=== PATIENT | male | born 1950 | race Caucasian/White ===

== ENCOUNTER 2025-07-06 18:59 | Inpatient (IN) | payer MEDICARE, SELFPAY ==
[2025-07-06] VITALS (9 sets, daily range): BP systolic 134–181; BP diastolic 77–98; BMI 32.5
--- NOTE | 2025-07-06 15:19 | ED.GENMED ---
History of Present Illness
General
Chief Complaint: Abdominal Symptoms
Source: patient
Exam Limitations: none
Time Seen by Provider: 07/06/25 15:07
Nursing documentation reviewed up to this point in time: agreed with
History of Present Illness
History of Present Illness:
75-year-old male with no reported chronic medical issues presents to the ER for evaluation of abdominal discomfort and shortness of breath. Patient reports symptoms have been ongoing for about a week. He reports that he will have 1-2 daily
episodes over the past week usually lasting for a few hours at a time. No clear triggering factors noted�he says that he has had a few episodes after eating but also has had multiple episodes not related to food. He describes feeling of abdominal
bloating and epigastric discomfort. He reports feeling that he cannot get a full breath then/tightness in his chest. He says that he gets dry mouth. He says he feels mildly lightheaded during these episodes. No nausea or vomiting. He has not
been constipated says he had a normal bowel movement today. He denies any fever or chills. He denies any palpitations. He denies any headache. He denies any swelling or pain in the legs. He denies any other acute complaints. He denies having
had similar symptoms the past. Denies any known cardiac history.
Review of Systems
Review of Systems
All Other Systems: ROS reviewed and negative except as documented in HPI and ROS
Constitutional: Denies fever or chills
EENT: Denies sore throat
Respiratory: Reports trouble breathing; Denies cough
Cardiac: Denies chest pain
ABD/GI: Reports abdominal pain and other (Bloating); Denies nausea, vomiting or diarrhea
Musculoskeletal: Denies edema
Neurological: Reports dizzy; Denies headache
Phy Exam
Physical Exam
Physical Exam:
General: Awake, alert, oriented x3, slightly hard of hearing; no acute distress
Head: Normocephalic, atraumatic
Eyes: Conjunctiva normal, sclera anicteric
Throat: Airway intact, handling secretions
Neck: Trachea midline, supple without meningismus
Lungs: Clear to auscultation bilaterally, no wheezing, rales, rhonchi
Heart: Regular rate and rhythm, no murmurs, gallops, or rubs appreciated
Abd: Soft, very mildly distended with some tympany, minimally tender epigastrium but no rebound tenderness or guarding and no appreciable masses
Neuro: Grossly intact
Skin: Warm and dry
Extremities: No edema in extremities, warm and well-perfused
Scores
Heart Failure Risk
Heart Failure Risk Score: Not Applicable
Heart Score for Chest Pain Patients
STEMI patient?: Not applicable
Withdrawal Assessment of Alcohol
Withdrawal Assessment Completed?: Not applicable
Course
Orders/Labs/Results
Orders:
Orders
07/06/25 15:06
Complete Blood Count/With Diff Urgent
Comprehensive Metabolic Panel Urgent
Lipase Urgent
07/06/25 15:08
Electrocardiogram (*1) Urgent
Reason for Study: Abdominal Pain
EKG- Treatment ONCE
07/06/25 15:19
CT Abd/pelvis W Iv Cont Urgent
Comment:
Reason For Exam: abd pain, bloating
CR Chest - 2 Views Urgent
Comment:
Reason For Exam: sob
07/06/25 15:44
Troponin I Urgent
07/06/25 17:50
Aspirin Chewable [Low Strength Aspirin] 324 mg PO NOW STA
07/06/25 17:57
PTT Urgent
Comment: Obtain baseline before beginning heparin infusion if not already collected
Heparin 4,000 units IV NOW STA
Pharmacy Request to Place See Dose Instructions PO NOW STA
Discontinue all Active Warfarin orders?: Yes
Nursing to Place Non Medication Order As Directed
Physician Order: PTT 6 hours after initial start of Heparin infusion
07/06/25 18:00
Heparin INFUSION titrate rate - CONTINUOUS Heparin 01516 Units/250 ml 25,000 units in 250 ml IV PER PROTOCOL
Weight to be used for heparin protocol in kilograms (kg):: 114.9
Protocol:: Cardiac Tx/Acute Coronary
PTT Goal Range to be used:: PTT 73 to 111 seconds
Order type:: Initial
INITIAL Infusion Dose (UNITS/KG/hr) & then follow protocol:: 12 units/kg/hr
Infusion Dose in UNITS/hr & then follow protocol (UNITS/hr):: 1,000
INFUSION RATE in mL/hr & then follow protocol (mL/hr):: 10
PTT less than or equal to 64 seconds:: Increase rate by 200 units/hr (+ 2 mL/hr)
PTT 64.1 to 72.9 seconds:: Increase rate by 100 units/hr (+ 1 mL/hr)
PTT 73 to 111 seconds:: Target Range. No change in rate.
PTT 111.1 to 130.9 seconds:: Decrease rate by 100 units/hr (- 1 mL/hr)
PTT 131 to 199.9 seconds:: HOLD for 1 hr. Then decrease rate by 200 units/hr (- 2 mL/hr)
PTT greater than or equal to 200 seconds:: HOLD for 2 hrs & Notify Provider. Then decrease by 200 units/hr (-
2 mL/hr)
Lab follow-up:: Each change, PTT q6h until 2 consecutive are therapeutic. Then PTT
daily.
Pharmacy Request to Place See Dose Instructions IV DIRECTED
07/06/25 18:44
Troponin I Urgent
Abnormal Lab Results
07/06/25 07/06/25
15:06 15:44
MPV 10.5 H fL
(7.4-10.4)
Absolute Lymphs (auto) 0.8 L 10^3/uL
(1.2-3.4)
Neutrophils % 77.8 H %
(42.2-75.2)
Lymphocytes % 12.7 L %
(20.5-51.1)
Glucose 108 H mg/dl
(70-99)
Troponin I 0.040 H* ng/ml
07/06/25 15:06
07/06/25 15:06
Vital Signs
Initial and Last Documented VS:
Initial Vital Signs
Temp Pulse Resp BP Pulse Ox
36.8 C 80 18 169/96 96
07/06/25 14:02 07/06/25 14:02 07/06/25 14:02 07/06/25 14:02 07/06/25 14:02
Last Documented Vital Signs
Temp Pulse Resp BP Pulse Ox
36.8 C 75 19 171/77 95
07/06/25 14:02 07/06/25 15:33 07/06/25 15:33 07/06/25 15:32 07/06/25 15:40
MDM/Problems Addressed
Differential Diagnosis Includes:
GERD, gastritis, cholelithiasis, cholecystitis, pancreatitis, bowel obstruction, anginal equivalent, dysrhythmia, anxiety/PE
MDM/Problems Addressed:
75-year-old male presents for evaluation of episodic bloating, shortness of breath, dry mouth and dizziness over the past week. Hypertensive otherwise normal vitals. Physical exam as above. Plan to check an EKG. Will place an IV send labs
including a CBC and a CMP, lipase, troponin. Will check chest x-ray. Check CT abdomen pelvis. Will monitor and reassess after the above.
Labs reviewed: CBC unremarkable, CMP no clinically significant abnormalities. Troponin is elevated at 0.04�will need to trend. Certainly symptoms could be anginal and I think with elevated troponin we will plan for admission for continued
monitoring and evaluation. We are still awaiting results of CT and chest x-ray.
Chest x-ray no acute abnormalities, CT abdomen pelvis negative for any acute pathology. Vital stable on reassessment. At this point concern is that patient is having unstable angina. Will treat with aspirin, initiate heparin infusion. Will admit
for continued management. Discussed with cardiology for consultation. Discussed case with hospitalist for admission.
Acute Exacerbation and/or Progression of Chronic Illness:
Acutely hypertensive
Acute Exacerbation and/or Progression of Chronic Illness: HTN
*Pulse Oximetry
SaO2: 96
Oxygen Mode of Delivery: Room air
Patient hypoxic: no (96%)
*EKG
Interpreted by ED Provider?: Yes
Heart Rate: 81
Rate: normal
Rhythm: sinus
Greer: normal axis
Interval: normal interval
QRS Pattern: left bundle branch block
Ischemia: non-specific ST changes
*Critical Care Note
Total Time (30-74mins, 75-104mins- exclusive of procedures): Not Applicable
Data Reviewed
Source: patient
Patient Management
Discussion with other providers: Hospitalist (Discussed with hospitalist) and Canvas Cutter (Discussed with cardiology)
Escalation/DeEscalation of care consider admission/obs:
Admission indicated
ED Attending Note
-
Portions of this chart may have been created with voice recognition software.� Occasional wrong word or��sound alike� substitutions may have occurred due to the inherent limitations of voice recognition software.
Discharge Plan
Departure
Patient Disposition: Admit
Date of Disposition: 07/06/25
Time of Disposition: 17:57
Admit to doctor: Derrell
Presentation/result/management discussed w/ accepting MD/DO: Hospitalist
Discharge Problem:
Unstable angina
Referrals:
NONE,* [Family Provider, Internal Medicine]
Interventions
Interventions:
*Risk Screen - Suicide Last Done: 07/06/25 14:02
*General Assessment Last Done: 07/06/25 14:02
*Neglect/Abuse Screening Last Done: 07/06/25 15:40
*ED- Fall Risk Assessment Last Done: 07/06/25 15:40
*ED COVID-19 Vaccine History Last Done: 07/06/25 15:40
ZC-Abaork-Epgeqzekeh Assessment Last Done: 07/06/25 15:40
Discharge Date and Time
Print Language: POLISH
[2025-07-06 15:20] LABS: Hematocrit 43.0 % (39.0-52.0); Hemoglobin 14.2 g/dL (13.0-18.0); Mean Corp Hgb Conc. 33.0 g/dL (33.0-37.0); Mean Corpuscular Volume 90.1 fL (80.0-94.0); Nucleated Red Blood Cells % 0 % (-); Platelet Count 148 10^3/uL (130-400); Red Cell Dist. Width 13.2 % (11.5-14.5)
[2025-07-06 15:34] LABS: ALT (SGPT) 25 U/L (0-50); AST (SGOT) 27 U/L (17-59); Albumin 4.5 g/dl (3.5-5.0); Alkaline Phosphatase 80 U/L (38-126); Blood Urea Nitrogen 15 mg/dl (9-20); Calcium 8.9 mg/dl (8.4-10.2); Carbon Dioxide 25 mmol/L (22-30); Chloride 103 mmol/L (98-107); Glucose 108 mg/dl (70-99); Lipase 55 U/L (23-300); Potassium 4.1 mmol/L (3.5-5.1); Sodium 135 mmol/L (135-145); Total Protein 6.7 g/dl (6.3-8.2); eGFR > 60.00
[2025-07-06 16:26] LABS: Troponin I 0.040 ng/ml
[2025-07-06] MEDS: LOW STRENGTH ASPIRIN 324 MG PO (18:15)
--- NOTE | 2025-07-06 18:21 | HPS.HSE ---
Addendum entered and electronically signed by KLAUS Hector 07/13/25 12:16:
Allergies
Allergy/AdvReac Type Severity Reaction Status Date / Time
No Known Allergies Allergy Unverified 07/06/25 14:03
Home Medications
aspirin 81 mg chewable tablet 81 mg PO DAILY #30 tabs 07/08/25
metformin 500 mg tablet 500 mg PO BID #60 tabs 07/08/25
metoprolol tartrate 25 mg tablet 12.5 mg (1/2 x 25 mg) PO BID #60 tabs 07/08/25
rosuvastatin 20 mg tablet 20 mg PO QPM #30 tabs 07/08/25
Original Note:
Family Physician
-
Family Physician: * NONE
Chief Complaint
-
sob
abdominal tightness
History of Present Illness
75-year-old male with no significant PMH presented to us with abdominal tightness and sob for one week. sob worse with exertion. denied chest pain. denied fever, chills, cough, congestion. denied HANKS, dizzy or syncope. denied n,v,d or constipation.
denied dysuria or hematuria.denied LE edema or weight gain.
upon arrival noted to have elevated trop. Dose of aspirin. Initiated on heparin drip. Admitting for further management
Medical History
Past Medical History
Past Medical History: Reports None
Past Surgical History: Reports Other
Additional Past Surgical History:
Appendectomy
Social History
Tobacco: Non-smoker
Alcohol: None
Drug: None
Family History
Family History: Not pertinent
Allergies / Home Medications
Allergies reflects when Allergies were last updated in [employer].
Home Medications with original date entered in [employer]
Allergy/Medication List:
Allergies
Allergy/AdvReac Type Severity Reaction Status Date / Time
No Known Allergies Allergy Unverified 07/06/25 14:03
Review of Systems
-
Constitutional: Reports No Symptoms
EENT: Reports No Symptoms
Respiratory: Reports Trouble Breathing
Cardiac: Reports No Symptoms
Abdomen/GI: Reports Other (Abdominal tightness)
: Reports No Symptoms
Musculoskeletal: Reports No Symptoms
Skin: Reports No Symptoms
Neurological: Reports No Symptoms
Endocrine: Reports No Symptoms
Hematologic/Lymphatic: Reports No Symptoms
Psych: Reports No Symptoms
Physical Exam
Vital Signs
Vital Signs
Temp Pulse Resp BP Pulse Ox
98.3 F 75 19 171/77 95
07/06/25 14:02 07/06/25 15:33 07/06/25 15:33 07/06/25 15:32 07/06/25 15:40
Physical Exam
General: Well Developed, Well Nourished and No Apparent Distress
HEENT: NormoCephalic, Moist mucous membranes and Atraumatic
Respiratory: Clear
Cardiac: S1/S2 and Regular Rhythm; No Murmur or Rub
GI: Soft, Non Tender, Non Distended and Normal Bowel Sounds; No Organomegaly
Rectal: Deferred by Provider
Musculoskeletal: No Clubbing, No Cyanosis and No Edema
Skin: No Rash
Neuro: AO x 3 and Nonfocal/grossly intact
Psych: Calm
Laboratory Results
-
07/06/25 15:06
07/06/25 15:06
Laboratory Results
Total Bilirubin 1.1 mg/dl (0.2-1.3) 07/06/25 15:06
AST 27 U/L (17-59) 07/06/25 15:06
ALT 25 U/L (0-50) 07/06/25 15:06
Alkaline Phosphatase 80 U/L (38-126) 07/06/25 15:06
Troponin I 0.040 ng/ml H* 07/06/25 15:44
Lipase 55 U/L (23-300) 07/06/25 15:06
Data Reviewed
-
Diagnostic Radiology: Report Reviewed by me
CT Scan: Report Reviewed by me
Lab Data: Labs Reviewed by me
Impression/Plan
-
# Unstable angina
- EKG with sinus rhythm with premature atrial complexes in a pattern of bigeminy. Left bundle branch block
- Troponin elevated, continue to trend
-CT abdomen negative
-Chest x-ray negative
-asa continued
-Heparin drip continue
-Cardiology consulted
# DVT prophylaxis
-On heparin
# CODE STATUS
-Full code
[2025-07-06] MEDS: HEPARIN 25000 UNITS/250 ML IV (18:31)
[2025-07-06] MEDS: HEPARIN 4000 UNITS IV (18:33)
--- NOTE | 2025-07-06 18:59 | CON.CAR ---
Consultation
Consultation Request
Date/Time Consultation Requested: 07/06/25
Date/Time Consultation Performed: 07/06/25
Requesting Provider: Lance
Performing Provider: Noel
Reason for Consultation: LBBB, elevated troponin
Medical History
-
Chief Complaint: abd bloating
History of Present Illness:
75-year-old male with no significant past medical history presents for evaluation of approximately one week of abdominal discomfort/bloating.
Also reports intermittent dyspnea over this time.Dyspnea is not clearly exertional. No PND or orthopnea from what I can tell. Patient describes it by saying 'maybe this is anxiety.' No associated chest pain or pressure. And no lower extremity edema.
No palpitations, presyncope or syncope.
Initial ECG showed sinus rhythm with PACs and left bundle branch block pattern. Troponin came back borderline positive at 0.04. With concern for ACS patient was started on aspirin and heparin drip.
CT abdomen pelvis was unremarkable. Possible pulmonary vascular congestion but clear lung thompson on chest x-ray.
Past Medical History
Past Medical History: None
Past Surgical History: Appendectomy
Social History
Tobacco: Former Smoker
Family History
Family History: Reviewed & Not Pertinent
Allergies / Home Medications
Allergy/AdvReac Type Severity Reaction Status Date / Time
No Known Allergies Allergy Unverified 07/06/25 14:03
�Medication �Instructions �Recorded �Confirmed �Type
No Meds [No Current Medications] 07/06/25 07/06/25 History
Review of Systems
-
History Source: Patient
All other systems: Negative unless noted
Physical Exam
Vital Signs
Temp Pulse Resp BP Pulse Ox
98.3 F 75 19 171/77 95
07/06/25 14:02 07/06/25 15:33 07/06/25 15:33 07/06/25 15:32 07/06/25 15:40
Lab Results
07/06/25 15:06
07/06/25 15:06
Troponin I 0.040 ng/ml H* 07/06/25 15:44
Fxy-R-Amilxohibmr Pept Cancelled 07/06/25 15:44
Physical Exam
General: Well Developed
HEENT: Normocephalic
Respiratory: Clear
Cardiac: S1/S2, Regular Rhythm and Murmur (2/6 SOFIE)
GI: Soft and Distended
Musculoskeletal: No Edema
Skin: Warm and Dry
Neuro: Awake and Alert
Psych: Calm
Impression / Plan
-
[employer] Consultant: None prior to admission
Assessment:
Abdominal discomfort/bloating
Elevated troponin
Left bundle branch block
PACs
Hypertension
Plan:
-Presenting with abdominal distention/bloating and found to have borderline elevated troponin of 0.04. Symptoms seem atypical but with concern for ACS he was treated with aspirin and heparin drip.
-Continue with medical therapy - ASA/heparin. Will add BB and statin
-Trend troponin to peak
-Check echo in a.m.
-Results of echo and troponin trend will dictate timing and modality of ischemic evaluation
-Will add proBNP as symptoms could represent CHF
Data Reviewed
-
EKG: Tracing Personally Visualized and interpreted
Radiology: Image Personally Visualized and interpreted
CT Scan: Report Reviewed by me
Labs: Labs Reviewed by me
[2025-07-06 19:02] LABS: APTT 40.9 Sec (23.4-35.0)
[2025-07-06 19:26] LABS: Troponin I 0.058 ng/ml
--- NOTE | 2025-07-06 19:49 | W.PN.UPDATE ---
Update Note
Progress Note Update
This note serves as an addendum to the H&P by mercury recoverer SERGIO�
Terese DAREN�
HPI
75M No significant PMH
- abdominal tightness and sob for one week
- POS Alvarez
ROS:
- denied chest pain.
- denied n,v,d or constipation.
- denied dysuria or hematuria.
- denied LE edema or weight gain.
Upon arrival noted to have elevated trop.
Dose of aspirin. Initiated on heparin drip. Admitting for further management
Relevant VS
-
Temp Pulse Resp BP Pulse Ox
98.3 F 75 19 171/77 95
07/06/25 14:02 07/06/25 15:33 07/06/25 15:33 07/06/25 15:32 07/06/25 15:40
PE
Gen: Not toxic ,
HEENT: anicteric
Neck: supple
Lungs: CTA
Cor: RRR S1 S2, SOFIE +
Abdomen:�soft NT NG
CLOTH EXAMINER HAND: NFND
MS: no edema
Psych: unusual affect
Relevant Data
07/06/25 07/06/25 07/06/25
15:06 15:44 18:40
MPV 10.5 H
Absolute Lymphs (auto) 0.8 L
Neutrophils % 77.8 H
Lymphocytes % 12.7 L
APTT 40.9 H
Glucose 108 H
Troponin I 0.040 H* 0.058 H* D
CXR
No focal consolidation, pleural effusion, or pneumothorax. The cardiomediastinal silhouette is normal. Chronic mild degenerative changes of the spine
CT Abd/pelvis W Iv Cont
No CT evidence for an acute inflammatory process in the abdomen or pelvis. Other chronic findings, as detailed above.
ASSESSMENT & PLAN
Concern for ACS but atypical presentation
Elevated and trending up TPNI
PACs
Left bundle branch block
Essential HTN
- ASA + Heparin gtt per Card
- noted Metoprolol + Rosuvastatin addition
- Trend TPNI + ECHO in AM
- Defer further ischemic evaluation to Card
- DCA card consulted
Abdominal discomfort/bloating and
- NEG CT AP
DVT Px: Heparin gtt
Full code
IP TLM
[2025-07-06] MEDS: LOPRESSOR 12.5 MG PO (20:11)
[2025-07-06] MEDS: CRESTOR 20 MG PO (20:14)
[2025-07-06 22:31] LABS: Troponin I 0.092 ng/ml
[2025-07-07] VITALS (13 sets, daily range): BP systolic 99–176; BP diastolic 60–99; BMI 31.8
--- NOTE | 2025-07-07 00:53 | PTCARENOTE ---
Pt admitted from ED to room 2256 at 2300, aaox3, denies cp, sob or other complaints. Heparing infusing at 1000unit/ hr. Sr on the monitor w/ PAC's and BBB, Hr 60's, irregular ap. Admission questions completed, pt oriented to room and call light.
[2025-07-07 00:54] LABS: APTT 46.2 Sec (23.4-35.0)
[2025-07-07 02:52] LABS: Troponin I 0.107 ng/ml
--- NOTE | 2025-07-07 03:06 | DOWNTIME ---
There was a [employer] Client Manager Animal Downtime on 07/07/2025 from 0100 to 07/07/2025 at 0235. Downtime documentation of patient's care, including medication administrations, has been reconciled in the electronic record per guidelines. Refer to the
patient's paper chart under the miscellaneous tab to see printed paper medication records and downtime forms.
[2025-07-07 04:58] LABS: HDL Cholesterol 53 mg/dl; LDL Cholesterol, Calculated 91 mg/dl; Very Low Density Lipoprotein 12 mg/dl (0-30)
[2025-07-07 05:12] LABS: Troponin I 0.094 ng/ml
[2025-07-07 06:41] LABS: Glycohemoglobin (HgbA1c) 6.3 % (4.0-5.6)
[2025-07-07 07:08] LABS: APTT 51.7 Sec (23.4-35.0)
[2025-07-07] MEDS: LOPRESSOR 12.5 MG PO ×2 (09:06→20:16)
[2025-07-07] MEDS: LOW STRENGTH ASPIRIN 81 MG PO (09:06)
--- NOTE | 2025-07-07 09:58 | W.PN.HOSP.TC ---
Addendum entered and electronically signed by Edwin Horton MD 07/07/25 10:05:
5. Essential HTN
- SBP in 170s currently
- started on Toprol xl 12.5mg bid by cards
- will add ATIF for renal protection with new Pre-diabetes dx , once no need of LHC established.
Original Note:
Today's Communication/Plan
-
see note
possible d/c today if TTE normal
Assessment / Plan
Assessment / Plan
1. Unstable angina
Troponin elevation
- EKG showing left bundle branch block and PACs
- Denies having any previous history of coronary disease
- Not a smoker. Nonalcoholic. Prediabetic with hemoglobin A1c of 6.3. Total cholesterol 156 LDL 91
- Currently on aspirin/heparin drip
- Cardiology evaluated patient in ER, awaiting echocardiogram for further recommendation
- Remains chest pain-free overnight
2. Epigastric discomfort
Abdominal distention
- CT abdomen pelvis did not show any acute issues
- Patient does have history of reflux although stated of able to manage with diet
- Denies history of peptic ulcer disease/melena
3. Obesity
- Recommended weight loss
- Patient stated of very active to COVID, used to play racquetball 3 times a day
4. Prediabetes
- Hemoglobin A1c of 6.3
- Will initiate metformin if no need of further cardiac testing/LHC, monitor for any GI symptoms
- Diabetes education consult ordered
- Patient educated on carb controlled diet/weight loss measures
- Of note patient does not see any family physician, will provide referral to family resident clinic
DVT PPX - heparin drip
Full code
Total time spent 53 minutes
Anticipated Discharge: Within 24 hours
Subjective/Interval History
-
Date of Service: July 07, 2025
Denies of having any ongoing chest pain/abdominal pain/nausea/vomiting
Objective Data
-
Labs:
Laboratory Results
07/07/25 07/07/25 07/07/25
00:36 06:40 13:15
APTT 46.2 H 51.7 H Pending
Vital Signs:
Vital Signs
Temp Pulse Resp BP Pulse Ox
98 F 64 20 176/81 96
07/07/25 08:29 07/07/25 09:00 07/07/25 08:29 07/07/25 08:28 07/07/25 08:29
Review of Systems
-
Respiratory: Reports No Symptoms
Cardiac: Reports No Symptoms
Abdomen/GI: Reports No Symptoms
Physical Exam
-
General: No Apparent Distress and Comfortable
HEENT: Negative Oxygen
Respiratory: Clear to Auscultation
Cardiac: Regular Rhythm and S1/S2; Negative Murmur or Rub
GI: Soft, Nontender, Nondistended and Normal Bowel Sounds
Musculoskeletal: No Edema
Neuro: Awake, Alert, Oriented, No Motor Deficits and Nonfocal/Grossly Intact
Psych: Calm
--- NOTE | 2025-07-07 10:14 | PTCARENOTE ---
Patient resting in bed this morning, denies any chest pain or sob. IV heparin infusing at 1400 units/hr. Remains NPO for probable cardiac cath, awaiting echo. States he has been having an issue with some of his teeth, does not seem to follow up with
a dentist, but states his left upper molar he has noted yellow drainage on his pillow when he sleeps on his left side and he has a foul taste in his mouth, reinforced importance of good oral care/hygiene and to notify his physician.
--- NOTE | 2025-07-07 11:11 | PTCARENOTE ---
07/07/2025 I met with patient, he has pre diabetes with an A1c of 6.3%. Currently inpatient with [facility]. I provided education on pre diabetes, T2D; it's meaning, potential complications, signs and symptoms of hyperglycemia and hypoglycemia. We
reviewed glucose ranges that are normal, prediabetes, and in diabetes ranges.
Mr. Griffin currently does not exercise, he used to play [employer] prior to Covid. Has not resumed any exercise other than an occasional walk. Encouraged patient to increase exercise to 30 minutes a day 5-7 days a week with MD approval. He
also does not drink a lot of water, I encouraged him to increase water intake to reduce glucose levels.
Discussed the mechanism of action for Metformin, report and GI symptoms to provider and take with food.
I provided demonstration of monitoring glucose, his current glucose is 121 fasting. Provided Cont[employer] Next glucose testing kit, referred him to online resources or [employer] if he would like additional testing supplies. Also provided written
information on diabetes management, prediabetes classes, planning health meals, and Simple Weigh Weight Management class. Patient has phone number for the diabetes and nutrition services department, will outreach with any questions or concerns.
--- NOTE | 2025-07-07 12:20 | W.PN.CARDCBS ---
Addendum entered and electronically signed by Patrice Cohen MD 07/07/25 17:22:
I saw and examined the patient on morning rounds.
The Csw's note was reviewed and I agree with the note.
Comment: Briefly, 75-year-old man with no known past medical history presenting with complaints of abdominal discomfort and dyspnea over the last week or so
ECG here shows left bundle branch block
Initial troponin elevated at 0.04 and peaked at 0.109 concerning for possible NSTEMI
With concern for ACS patient was started on aspirin and heparin drip and the ED
Echo here shows low normal LV function and no obvious segmental wall motion abnormalities
For now would continue aspirin, high intensity statin, beta-cheyanne and heparin drip
Plan for coronary angiography and we will facilitate potentially for later today if the schedule allows
Original Note:
Today's Communication / Plan
-
Tentative plan for cardiac catheterization later today
Continue IV heparin, aspirin, Lopressor, Crestor
Echo pending
Further recommendations based on results of cardiac cath
Impression / Plan
-
Customizer: None prior to admission
Assessment:
Abdominal discomfort/bloating
Elevated troponin
Left bundle branch block
PACs
Hypertension
Prediabetes
ECHO 07/07/25: pending
Plan:
- He discussed symptoms of abdominal discomfort with ER staff and architectural examiner last evening. This morning he reports his symptoms were more so chest tightness and labored breathing
- Troponin peaked at 0.1 overnight and downtrending
- Patient presently without symptoms
- EKG showed sinus rhythm with left bundle branch block, unclear acuity as has not seen a physician in quite some time
- He was started on IV heparin, aspirin, Lopressor
-LDL 91. Started on Crestor 20 mg every afternoon
- In sinus rhythm with frequent PACs on review of telemetry
- Echo pending
- Discussed cardiac catheterization with patient in detail and he is agreeable to proceed. He is n.p.o. for possible cath this afternoon
- proBNP 192 and chest x-ray without acute cardiopulmonary abnormalities
- Hemoglobin A1c 6.3%
Progress Note - Customizer
Subjective
Date of Service: July 07, 2025
No present symptoms
Objective
Labs:
07/06/25 15:06
07/06/25 15:06
Labs
Hgb 14.2 g/dL (13.0-18.0) 07/06/25 15:06
Hct 43.0 % (39.0-52.0) 07/06/25 15:06
Plt Count 148 10^3/uL (130-400) 07/06/25 15:06
APTT 51.7 Sec (23.4-35.0) H 07/07/25 06:40
Sodium 135 mmol/L (135-145) 07/06/25 15:06
Potassium 4.1 mmol/L (3.5-5.1) 07/06/25 15:06
BUN 15 mg/dl (9-20) 07/06/25 15:06
Creatinine 0.8 mg/dL (0.7-1.3) 07/06/25 15:06
Glucose 108 mg/dl (70-99) H 07/06/25 15:06
Troponins
07/06/25 07/06/25 07/06/25
15:44 18:40 21:57
Troponin I 0.040 H* 0.058 H* D 0.092 H* D
07/07/25 07/07/25
00:36 04:17
Troponin I 0.107 H* 0.094 H*
Vital Signs and I&O:
Vital Signs
Temp Pulse Resp BP Pulse Ox
98.1 F 68 20 151/81 96
07/07/25 11:58 07/07/25 12:15 07/07/25 11:58 07/07/25 11:58 07/07/25 11:58
Vital Signs
Temp Pulse Resp BP Pulse Ox
98.1 F 68 20 151/81 96
07/07/25 11:58 07/07/25 12:15 07/07/25 11:58 07/07/25 11:58 07/07/25 11:58
Physical Exam
Physical Exam
GEN: No distress, awake, alert, oriented x3
HEENT: supple, anicteric, mmm, EOMI
LUNGS: CTA bilaterally, no wheezes/rales
CV: Reg, S1/S2, 1/6 syst LSB
ABD: soft, BS+, NT/ND
EXT: No cyanosis, clubbing, edema
NEURO: Gross non-focal
SKIN: Warm, pink, dry. No rash
--- NOTE | 2025-07-07 13:59 | CM ---
spoke to pt in room, he is prev indep, lives alone in a 1 story home with 2 steps to enter. he denies any dc planning needs or dme's. plan is for dc to home when medicably stable.
[2025-07-07 14:11] LABS: APTT 58.8 Sec (23.4-35.0)
[2025-07-07] MEDS: HEPARIN 25000 UNITS/250 ML IV (15:20)
--- NOTE | 2025-07-07 17:18 | ITS.CL.CATH ---
Coding Tech - Catheterization
Cardiac Catheterization
Procedure Report:
LEFT HEART CATHETERIZATION
Date of Procedure: July 07, 2025
Referring: Patrice Cohen MD, PhD.
PROCEDURES:
1. Left heart catheterization, coronary angiogram.
2. Moderate sedation.
INDICATION: Concern for NSTEMI
ACCESS: Right radial artery, 6Fr. sheath, under US guidance.
HEMODYNAMICS : (mmHg)
AO (s/d) : 142/88
LVEDP : 10
No significant gradient across the aortic valve to suggest aortic stenosis.
CORONARY FINDINGS
Dominance: Right
Left Main Trunk (LMT): Large caliber vessel that gives rise to the LAD and LCx branches and is free of angiographic disease.
Left Anterior Descending Artery (LAD): Large caliber vessel that gives off 2 major diagonal branches as it courses along the anterior inter-ventricular groove before wrapping around the cardiac apex. There is mild diffuse atherosclerotic plaque.
Left Circumflex Artery (LCx): Large caliber vessel that gives off 1 major obtuse marginal (OM) branches as it courses along the atrio-ventricular (AV) groove. The LCx and its branches are free of angiographic disease.
Right Coronary Artery (RCA): Large caliber dominant vessel that gives rise to the posterior descending artery (RPDA) and postero-lateral ventricular (RPLV) branches distally. The RCA and its branches are free of angiographic disease. RCA is
moderately tortuous in the midportion.
SEDATION: 27 minutes of procedural sedation was utilized. IV Midazolam and IV Fentanyl were administered. An independent medical collector was present to assist with and help manage the patient's level of consciousness and physiologic status.
RADIATION SUMMARY: Fluoro Time (min): 2.0, Dose (mGy): 21.99, DAP (Gy.cm2) : 334.7
Closure Device: There were no immediate intra-procedural complications. The sheath was pulled in the labor representative and a vascular-band applied to the right wrist for radial artery hemostasis using the patent hemostasis technique.
CONCLUSIONS
1. No obstructive coronary artery disease.
2. LVEDP of 10 mmHg.
RECOMMENDATIONS
1. Wean radial band per protocol. Monitor right hand perfusion and for bleeding from the radial site following removal of the vascular-band following trans-radial access.
2. Continue aggressive medical therapy and risk factor modification for secondary CAD prevention.
3. Hydrate with normal saline to mitigate the risk of contrast-induced acute kidney injury.
4. Defer to primary team workup of noncardiac causes for presenting symptoms.
Copy to: Patrice Cohen MD, PhD.
Mayra Delgadillo MD, FAC, [facility]
--- NOTE | 2025-07-07 17:30 | PTCARENOTE ---
Patient taken to the cath lab tech.
[2025-07-07] MEDS: CRESTOR 20 MG PO (18:34)
--- NOTE | 2025-07-07 18:40 | PTCARENOTE ---
Patient returned from the manufacturing lab technician with right radial band in place. No bleeding or signs of hematoma noted, dressing dry and intact with palpable radial pulse. 96% pulse ox on his right hand. Reinforced post cath activity restrictions. Dinner
ordered, monitoring VS, patient offers no complaints, call hua in reach.
--- NOTE | 2025-07-07 23:44 | PTCARENOTE ---
Received pt at change of shift resting in bed. SR w/ BBBC, PAC's and PVC's on tele. HR in the 60's. pt denies any CP or SOB. Right radial band removed. Dressing applied and is C.D.I. No bleeding or hematoma noted at this time. Positive pulses. SpO2
94%. Encouraged pt to call RN with any questions/concerns. Call hua within reach.
[2025-07-08] VITALS: BP 135/65
[2025-07-08 02:49] VITALS: BP 118/72
[2025-07-08 03:44] LABS: Hematocrit 41.6 % (39.0-52.0); Hemoglobin 13.5 g/dL (13.0-18.0); Mean Corp Hgb Conc. 32.5 g/dL (33.0-37.0); Mean Corpuscular Volume 91.0 fL (80.0-94.0); Platelet Count 145 10^3/uL (130-400); Red Cell Dist. Width 13.2 % (11.5-14.5)
[2025-07-08 04:07] LABS: Blood Urea Nitrogen 14 mg/dl (9-20); Calcium 9.0 mg/dl (8.4-10.2); Carbon Dioxide 25 mmol/L (22-30); Chloride 104 mmol/L (98-107); Estimated Creatinine Clearance 105 ml/min; Glucose 86 mg/dl (70-99); HDL Cholesterol 53 mg/dl; LDL Cholesterol, Calculated 68 mg/dl; Potassium 3.8 mmol/L (3.5-5.1); Sodium 136 mmol/L (135-145); Very Low Density Lipoprotein 19 mg/dl (0-30); eGFR > 60.00
[2025-07-08 05:59] VITALS: BMI 31.3
[2025-07-08 08:46] VITALS: BP 122/76
[2025-07-08] MEDS: LOPRESSOR 12.5 MG PO (08:50)
[2025-07-08] MEDS: LOW STRENGTH ASPIRIN 81 MG PO (08:50)
--- NOTE | 2025-07-08 08:55 | PTCARENOTE ---
Assumed care. No complaints of pain or shortness of breath. NSR BBB HR 60, BP 122/76, POX 98% on room air. Right radial cath site CDI. Precautions reviewed, call hua in reach
--- NOTE | 2025-07-08 10:05 | W.PN.HOSP.TC ---
Today's Communication/Plan
-
d/c planning home
await cardio evaluation
Assessment / Plan
Assessment / Plan
1. Unstable angina
Troponin elevation
- EKG showing left bundle branch block and PACs
- Denies having any previous history of coronary disease
- Not a smoker. Nonalcoholic. Prediabetic with hemoglobin A1c of 6.3. Total cholesterol 156 LDL 91
- Echocardiogram showing preserved ejection fraction
- Underwent left heart catheterization yesterday which did not show any obstructive CAD.
-Currently on regimen of baby aspirin/metoprolol/Crestor
2. Epigastric discomfort
Abdominal distention
- CT abdomen pelvis did not show any acute issues
- Patient does have history of reflux although stated of able to manage with diet
- Denies history of peptic ulcer disease/melena
3. Obesity
- Recommended weight loss
- Patient stated of very active to COVID, used to play [employer] 3 times a day
4. Prediabetes
- Hemoglobin A1c of 6.3
- Patient is post heart catheterization, will start metformin from tomorrow at home
- Diabetes education consult ordered
- Patient educated on carb controlled diet/weight loss measures
- Of note patient does not see any family physician, will provide referral to family resident clinic
DVT PPX - heparin drip
Full code
More than 30 minutes spent in discharge including
Final examination of the patient
Summarizing hospital stay
Instructions for continuing care to all relevant caregivers
Preparation of discharge records, prescriptions, and referral forms
Total time spent (in minutes): 38 mins
Anticipated Discharge: Today
Subjective/Interval History
-
Date of Service: July 08, 2025
Denies of having any episodes of chest pain/shortness of breath
No catheter access site problem
No other issues reported
Objective Data
-
Labs:
Laboratory Results
07/08/25
02:54
WBC 4.6 L
Hgb 13.5
Hct 41.6
Plt Count 145
Sodium 136
Potassium 3.8
Chloride 104
Carbon Dioxide 25
BUN 14
Creatinine 0.8
Glucose 86
Calcium 9.0
Vital Signs:
Vital Signs
Temp Pulse Resp BP Pulse Ox
97.6 F 55 18 122/76 98
07/08/25 08:49 07/08/25 08:46 07/08/25 08:49 07/08/25 08:46 07/08/25 08:49
I&O
07/07/25 07/08/25 07/09/25
06:59 06:59 06:59
Intake Total 620 / 620
Output Total 425 / 425
Balance 195 / 195
Review of Systems
-
Respiratory: Reports No Symptoms
Cardiac: Reports No Symptoms
Abdomen/GI: Reports No Symptoms
Physical Exam
-
General: No Apparent Distress and Comfortable
HEENT: Negative Oxygen
Respiratory: Clear to Auscultation
Cardiac: Regular Rhythm and S1/S2; Negative Murmur or Rub
GI: Soft, Nontender and Nondistended
Musculoskeletal: No Edema
Neuro: Awake, Alert, Oriented, No Motor Deficits and Nonfocal/Grossly Intact
Psych: Calm
[2025-07-08 10:23] VITALS: BP 126/60
--- NOTE | 2025-07-08 11:07 | PTCARENOTE ---
Patient discharged to home. IV and telemetry removed. Discharge teaching provided, he verbalized understanding. Patient escorted to his car
--- NOTE | 2025-07-08 12:18 | W.PN.CARDCBS ---
Today's Communication / Plan
-
Left heart cath with no significant coronary disease and normal LVEDP
Stable for discharge from my perspective, we will arrange outpatient follow-up
Impression / Plan
-
Clinical Office Technician: None prior to admission
Assessment:
Abdominal discomfort/bloating
Elevated troponin -nonischemic myocardial injury troponin elevation
Left bundle branch block
PACs
Hypertension
Prediabetes
ECHO 07/07/25: Low normal LVEF 50%, no high-grade valve disease
Plan:
- Presented with atypical symptoms of abdominal discomfort and dyspnea but found to have elevated troponin
- EKG showed sinus rhythm with left bundle branch block, unclear acuity as has not seen a physician in quite some time
- He was started on IV heparin and aspirin in [facility] for for treatment of possible ACS
- Underwent left heart catheterization 07/07/2025 with no significant coronary artery disease
- Overall unclear what the cause was of his presenting symptoms however this morning he feels well and has no further complaints
- In sinus rhythm with frequent PACs on review of telemetry
- Would continue metoprolol for now given PACs and elevated blood pressure readings here
Stable for discharge from my perspective
We will arrange outpatient cardiology follow-up
Progress Note - Clinical Office Technician
Subjective
Date of Service: July 08, 2025
No acute overnight events. Patient resting comfortably in bed this morning, no cardiac complaints, including no chest or abdominal bruit and no dyspnea. No discomfort to the left radial access site.
Objective
Labs:
07/08/25 02:54
07/08/25 02:54
Labs
Hgb 13.5 g/dL (13.0-18.0) 07/08/25 02:54
Hct 41.6 % (39.0-52.0) 07/08/25 02:54
Plt Count 145 10^3/uL (130-400) 07/08/25 02:54
APTT Cancelled 07/07/25 20:30
Sodium 136 mmol/L (135-145) 07/08/25 02:54
Potassium 3.8 mmol/L (3.5-5.1) 07/08/25 02:54
BUN 14 mg/dl (9-20) 07/08/25 02:54
Creatinine 0.8 mg/dL (0.7-1.3) 07/08/25 02:54
Glucose 86 mg/dl (70-99) 07/08/25 02:54
Troponins
07/06/25 07/06/25 07/06/25
15:44 18:40 21:57
Troponin I 0.040 H* 0.058 H* D 0.092 H* D
07/07/25 07/07/25
00:36 04:17
Troponin I 0.107 H* 0.094 H*
Vital Signs and I&O:
Vital Signs
Temp Pulse Resp BP Pulse Ox
97.6 F 59 18 126/60 98
07/08/25 08:49 07/08/25 10:23 07/08/25 08:49 07/08/25 10:23 07/08/25 08:49
Vital Signs
Temp Pulse Resp BP Pulse Ox
97.6 F 59 18 126/60 98
07/08/25 08:49 07/08/25 10:23 07/08/25 08:49 07/08/25 10:23 07/08/25 08:49
Intake & Output
07/06/25 07/07/25 07/08/25 07/09/25
06:59 06:59 06:59 06:59
Intake Total 620 / 620
Output Total 425 / 425
Balance 195 / 195
Physical Exam
Physical Exam
Gen: NAD, AAOx3
HEENT: NC/AT, sclera anicteric
Neck: No JVD
CV: RRR, NL s1/s2, no M/R/G
Lungs: CTAB
Abd: S/ND
Ext: No LE edema
Skin: Warm, dry
Neuro: Non-focal
--- NOTE | 2025-07-09 16:00 | W.DCSUMMARY ---
Discharge Summary
Discharge Data
Date of Admission: 07/06/25
Date of Discharge: 07/08/25
-
Pending Results: No
Hospital Course
Discharging Physician : Dr Edwin Horton
Disposition : To home
Primary care physician : Unknown
Principal Discharge diagnosis :
Unstable angina
Troponin elevation
Epigastric discomfort
Prediabetes
Chronic Discharge diagnosis :
Obesity
Hospital Course :
Patient is a 75-year-old male with above-mentioned past medical history came to ER for epigastric strike sternal pain with some dyspnea. Patient was found to having elevated troponin. EKG showed left bundle branch block and patient did not have
any previous history of any coronary arterial disease. Patient was started on antiplatelet therapy. An echocardiogram showed preserved ejection fraction. Cardiology recommended patient to undergo left heart catheterization which did not show any
obstructive coronary disease. Cardiology recommended patient to be managed on regimen of aspirin/metoprolol/Crestor.
For patient epigastric discomfort patient with CT abdomen pelvis in the ER which did not show any acute issues. Patient denies of having significant reflux problem.
Patient was diagnosed to be prediabetic with A1c at upper normal of 6.3. Patient was started on metformin at discharge. Patient was provided primary care physician contact number to establish care.
Important imaging findings :
None
Procedure findings :
None
Discharge Plan
-
Patient Disposition: Home (Routine Discharge)
Discharge Diagnosis/Procedures: Chest pain, Pre-diabetic, HTN
Condition: Fair
Diet: Diabetic, Carb Controlled
Activity: As tolerated
Driving Restrictions: As prior to admission
Bathing Restrictions: OK to Shower
Referrals:
diabetes education [Other]
Referral Note: Please call this number to participate in diabetic education classes.
[facility] [Outside, Family Practice] - in one week
Referral Note: Please call for a new patient appointment
Prescriptions:
New
aspirin 81 mg Tablet,Chewable
81 mg PO DAILY Qty: 30 0RF
rosuvastatin 20 mg Tablet
20 mg PO QPM Qty: 30 2RF
metoprolol tartrate 25 mg Tablet
12.5 mg PO BID Qty: 60 2RF
metformin 500 mg tablet
500 mg PO BID Qty: 60 2RF
Discharge Orders:
Discharge Patient (As Directed); Ordered 07/08/25
Ordered By: Edwin Horton
Care Plan Goals
Care Plan Goals:
Problem: Readiness for enhanced knowledge related to diagnosis and treatment plan
Goal: Understand your diagnosis and treatment plan needs, including medications if applicable.
Instructions: Know your diagnosis, underlying causes and treatment plan options, including medications if applicable. Consult with your health care team to learn about your diagnosis and treatment plan, including medications if applicable.
Discharge Date and Time
Discharge Date/Time: 07/08/25 11:10
Print Language: HEBREW
== END 2025-07-08 11:10 | disposition home or self-care (01) | DRG 287 ==
LOC: IVU 18:59
PROVIDERS: Internal Medicine Interventional Cardiology; Registered Nurse; Student in an Organized Health Care Education/Training Program; ADMITTING PHYSICIAN Internal Medicine; ATTENDING PHYSICIAN Hospitalist; CONSULT PHYSICIAN Internal Medicine Cardiovascular Disease; EMERGENCY PHYSICIAN Emergency Medicine
PROC: 4A023N7 Measurement of Cardiac Sampling and Pressure, Left Heart, Percutaneous Approach (ICD-10-PCS; 2025-07-07)
PROC: B2111ZZ Fluoroscopy of Multiple Coronary Arteries using Low Osmolar Contrast (ICD-10-PCS; 2025-07-07)
DX: I20.0 Unstable angina (principal); R73.03 Prediabetes; E66.9 Obesity, unspecified; Z68.31 Body mass index [BMI] 31.0-31.9, adult; I44.7 Left bundle-branch block, unspecified; I10 Essential (primary) hypertension; Z87.891 Personal history of nicotine dependence
CPT/HCPCS: 71046; 74177; 80048; 80053; 80061; 83036; 83690; 83880; 84484; 85025; 85027; 85730; 93005; 93306; 93458; 96365; 96366; 99152; 99153; 99285; C1894; Q9967